=== PATIENT | female | born 1950 | race Caucasian/White ===

== ENCOUNTER 2018-12-14 08:41 | Day surgery (SDC) | payer MEDICARE ==
[~2018-12-14 08:41] MED LIST: Acetaminophen TAB* 325 MG PO PRN
[2018-12-14] MEDS ORDERED: Midazolam* 1 MG/ML 2 ML VIAL (2 MG) ONE ×2 (09:26→09:57)
[2018-12-14 10:23] VITALS: BP 123/67
[2018-12-14] MEDS ORDERED: Tetracaine 0.5% OPTH.SOL 4 ML* 1 DROP BTL ONE (10:58)
[2018-12-14] MEDS ORDERED: Phenylephrine 2.5% OPTH.SOL* 2 ML BTL ONE (10:58)
[2018-12-14] MEDS ORDERED: Ketorolac 0.5% OPHTH (NF) 0.5 % 5 ML BTL ONE (10:58)
[2018-12-14] MEDS ORDERED: Tropicamide 1% OPTH.SOL* BTL ONE (10:58)
[2018-12-14] MEDS ORDERED: Neomycin/Polymy/Dex OPHTH.OIN* 3.5 GM ONE (10:58)
[2018-12-14] MEDS ORDERED: Lidocaine 1%* 5 ML VIAL ONE (10:58)
[2018-12-14] MEDS ORDERED: Povidone Iodine 5% OPTH* 30 ML BTL ONE (10:58)
[2018-12-14] MEDS ORDERED: Cyclopentolate 1% OPTH.SOL* 2 ML BTL ONE (10:58)
[2018-12-14] MEDS ORDERED: acetaZOLAMIDE TAB* 250 MG ONE (10:58)
--- NOTE | 2018-12-14 12:51 | OP ---
DATE OF OPERATION: 12/14/18 [facility] DATE OF : 48 SURGEON: Ankit Deras MD. ANESTHESIA: Monitored anesthesia care. PRE-OP DIAGNOSIS: Cataract, right eye. POST-OP DIAGNOSIS: Cataract, right eye. OPERATIVE PROCEDURE: Extracapsular cataract extraction of the right eye with intraocular lens implant. IMPLANTS: SN60WF 16.5 diopter lens to the right eye. COMPLICATIONS: None. DESCRIPTION OF PROCEDURE: The patient was given phenylephrine 2.5 % and cyclopentolate 1% eye drops to the operative eye in the preoperative area. The patient was taken to the operating room where a time-out was taken to identify the correct patient, site, and side of surgery. The patient's right eye was prepped and draped in the usual sterile fashion with 5% Betadine. A second time- out was taken to verify the correct patient, side, and site of surgery, as well as the correct lens implant. A lid speculum was placed to the right eye. A 1mm paracentesis blade was used to make a clear corneal incision. Preservative-free 1% lidocaine was injected into the anterior chamber. DisCoVisc was then injected into the anterior chamber. A 2.75 mm keratome blade was used to make a triplanar incision. A cystotome initiated a capsulorrhexis, which was completed with Utrata forceps in a continuous and curvilinear manner. Hydrodissection of the lens was performed with BSS on a cannula. The lens could be spun in a capsular bag. The phacoemulsification handpiece was used with a divide-and- conquer technique to remove the nucleus. The I/A handpiece then removed the residual cortical lens material. DisCoVisc was injected to inflate the capsular bag. The planned SN60WF 16.5 Diopter lens was injected into the capsular bag. The residual DisCoVisc was removed from the eye with the I/A handpiece. The corneal incisions were hydrated and no leaks occurred at physiologic pressure around 20 mmHg per palpation. The lid speculum was removed and drapes were removed. Maxitrol ointment was placed to the surface of the operative eye. An adhesive patch and shield was then placed on the operative eye. The patient was taken to the postoperative area in stable condition. [id number]/[facility] #: [id number] [facility]
== END 2018-12-14 10:24 | disposition home or self-care (01) ==
LOC: OREAST 08:41
PROVIDERS: ATTEND Student in an Organized Health Care Education/Training Program
DX: H26.9 Unspecified cataract (principal); Z79.899 Other long term (current) drug therapy; I10 Essential (primary) hypertension; E78.49 Other hyperlipidemia; K21.9 Gastro-esophageal reflux disease without esophagitis
CPT/HCPCS: A9270-GY; J2250; V2632

== ENCOUNTER 2018-12-21 06:34 | Day surgery (SDC) | payer MEDICARE ==
[2018-12-21] MEDS ORDERED: Midazolam* 1 MG/ML 2 ML VIAL (2 MG) ONE ×2 (07:22→07:29)
[2018-12-21 08:03] VITALS: BP 140/76
--- NOTE | 2018-12-21 08:23 | OP ---
DATE OF OPERATION: 12/21/18 - [facility] DATE OF : 48 SURGEON: Ankit Deras MD ANESTHESIA: Monitored anesthesia care. PREOPERATIVE DIAGNOSIS: Cataract, left eye. POSTOPERATIVE DIAGNOSIS: Cataract, left eye. OPERATIVE PROCEDURE: Extracapsular cataract extraction of the left eye with intraocular lens implant. IMPLANT: SN60WF 18.5 diopter lens to the left eye. COMPLICATIONS: None. DESCRIPTION OF PROCEDURE: The patient was given phenylephrine 2.5% and cyclopentolate 1% eye drops to the operative eye in the preoperative area. The patient was taken to the operating room where a time-out was taken to identify the correct patient, site, and side of surgery. The patient's left eye was prepped and draped in the usual sterile fashion with 5% Betadine. A second time- out was taken to verify the correct patient, side, and site of surgery, as well as the correct lens implant. A lid speculum was placed to the left eye. A 1mm paracentesis blade was used to make a clear corneal incision. Preservative-free 1% lidocaine was injected into the anterior chamber. DisCoVisc was then injected into the anterior chamber. A 2.75 mm keratome blade was used to make a triplanar incision. A cystotome initiated a capsulorrhexis, which was completed with Utrata forceps in a continuous and curvilinear manner. Hydrodissection of the lens was performed with BSS on a cannula. The lens could be spun in a capsular bag. The phacoemulsification handpiece was used with a divide-and- conquer technique to remove the nucleus. The I/A handpiece then removed the residual cortical lens material. DisCoVisc was injected to inflate the capsular bag. The planned SN60WF 18.5 diopter lens was injected into the capsular bag. The residual DisCoVisc was removed from the eye with the I/A handpiece. The corneal incisions were hydrated and no leaks occurred at physiologic pressure around 20 mmHg per palpation. The lid speculum was removed and drapes were removed. Maxitrol ointment was placed to the surface of the operative eye. An adhesive patch and shield was then placed on the operative eye. The patient was taken to the postoperative area in stable condition. [id number]/[facility] #: [id number] [facility]
[2018-12-21] MEDS ORDERED: Tetracaine 0.5% OPTH.SOL 4 ML* 1 DROP BTL ONE (10:25)
[2018-12-21] MEDS ORDERED: Cyclopentolate 1% OPTH.SOL* 2 ML BTL ONE (10:25)
[2018-12-21] MEDS ORDERED: acetaZOLAMIDE TAB* 250 MG ONE (10:25)
[2018-12-21] MEDS ORDERED: Tropicamide 1% OPTH.SOL* BTL ONE (10:25)
[2018-12-21] MEDS ORDERED: Neomycin/Polymy/Dex OPHTH.OIN* 3.5 GM ONE (10:25)
[2018-12-21] MEDS ORDERED: Povidone Iodine 5% OPTH* 30 ML BTL ONE (10:25)
[2018-12-21] MEDS ORDERED: Ketorolac 0.5% OPHTH (NF) 0.5 % 5 ML BTL ONE (10:25)
[2018-12-21] MEDS ORDERED: Phenylephrine 2.5% OPTH.SOL* 2 ML BTL ONE (10:25)
[2018-12-21] MEDS ORDERED: Lidocaine 1%* 5 ML VIAL ONE (10:25)
== END 2018-12-21 08:10 | disposition home or self-care (01) ==
LOC: OREAST 06:34
PROVIDERS: ATTEND Student in an Organized Health Care Education/Training Program
DX: H25.12 Age-related nuclear cataract, left eye (principal); H43.813 Vitreous degeneration, bilateral; I10 Essential (primary) hypertension; J45.909 Unspecified asthma, uncomplicated; K21.9 Gastro-esophageal reflux disease without esophagitis; Z85.3 Personal history of malignant neoplasm of breast; M79.18 Myalgia, other site
CPT/HCPCS: A9270-GY; J2250; V2632

== ENCOUNTER 2019-04-01 09:52 | Day surgery (SDC) | payer MEDICARE ==
[~2019-04-01 09:52] MED LIST changes: -Acetaminophen TAB* 325 MG PO PRN; +Buffered Lidocaine 1% SYRIN* 1 ML/SYRINGE INTRADERM ONE; +Lactated Ringers 1000 ML Bag* 1,000 ML IV SCH
[2019-04-01] MEDS ORDERED: ceFAZolin 2 GM PREMIX in ORs 2 GM/50 ML BAG IVPB ONE (10:04)
[2019-04-01] MEDS ORDERED: Midazolam* 1 MG/ML 2 ML VIAL (2 MG) ONE ×2 (11:34→12:59)
[2019-04-01] MEDS ORDERED: fentaNYL* 50 MCG/ML 2 ML VIAL (100 MCG VIAL) ONE (11:34)
[2019-04-01] MEDS ORDERED: Bupivacaine 0.25% SDV* 30 ML ONE (11:58)
[2019-04-01] MEDS ORDERED: ROPIVACAINE 5 MG/ML 30 ML BTL (0.5%) ONE (12:07)
[2019-04-01] MEDS ORDERED: Propofol* 10 MG/ML 20 ML BTL ONE ×2 (12:59→13:47)
[2019-04-01] MEDS ORDERED: Lidocaine 2% PF * 5 ML VIAL ONE (12:59)
[2019-04-01] MEDS ORDERED: Ondansetron INJ* 2 MG/ML VIAL IV PRN (13:10)
[2019-04-01] MEDS ORDERED: Naloxone* 0.4 MG/ML 1 ML VIAL IV PRN (13:10)
[2019-04-01 15:04] VITALS: BP 123/54
--- NOTE | 2019-04-01 23:49 | OP ---
OPERATIVE REPORT: DATE OF OPERATION: 04/01/19 - [facility] DATE OF : 48 SURGEON: Rubens Calles MD PANTRY STEWARD/STEWARDESS: STEVEN Peralta An certified nursing assistant was needed for the entirety of the procedure to aid in position of the arm and retraction. ANESTHESIOLOGIST: Dr. Glez. ANESTHESIA: Peripheral nerve block with MAC. PRE-OP DIAGNOSIS: Left stage 3 basal joint arthritis. 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 OPERATIVE PROCEDURE: 1. Left thumb carpometacarpal arthroplasty with trapeziectomy and thumb suspension via Arthrex Mini TightRope device. 2. Left partial trapezoidectomy. 3. Left distally based split flexor carpi radialis tendon transfer for tendon interposition at the site of the partial trapezoidectomy. INDICATIONS: Ayla has significant thumb base arthritis. It caused her quite a bit of pain and discomfort. I talked to her about her treatment options. She had wanted to proceed with surgery to see if she could get relief from the debilitating thumb base pain. She understands the risks and benefits associated with surgery and she wanted to proceed. ESTIMATED BLOOD LOSS: 5 mL. COMPLICATIONS: None. FINDINGS: See and below. DESCRIPTION OF PROCEDURE: Ayla was seen in the preoperative holding area. The correct side, site, and procedure were identified. We came back to the operating room and the arm was prepped and draped in the usual fashion and a time-out was performed. The arm was exsanguinated with the Esmarch and the tourniquet was inflated to 250 mmHg. I made a 2 to 3 cm incision over the dorsal radial thumb base. Dissection was carried down longitudinally, preserved the traversing sensory nerves. The radial artery was dissected free, mobilized, and retracted out of the way. I then raised subperiosteal and capsular flaps to expose the entirety of the trapezium. This was then excised in piecemeal fashion with rongeur in its entirety. After the trapeziectomy had been performed, I noted that the distal pole of the scaphoid was completely devoid of articular cartilage both at the scaphotrapezial joint as well as in the scaphotrapezoid joint. I went ahead therefore and took the osteotome and excised the proximal 3 to 4 mm of trapezoid. This came out cleanly in 1 piece. I ensured there were no remnants remaining. After the partial trapezoidectomy had been performed, I went ahead and made a 1 cm incision over the dorsal ulnar aspect of the second metacarpal base. Sensory nerve was retracted out of the way. I released a little bit of the muscle there subperiosteally. I then placed my K-wire guide in the appropriate location and then passed a K-wire from the base of the thumb metacarpal up to the dorsal ulnar aspect of the second metacarpal base. The FiberWire suture was passed up through the drill hole. I then retrieved the 2 tails off my EndoButton and placed the first EndoButton on the dorsal ulnar aspect of the second metacarpal base. The suture tails were pulled out through the first metacarpal base and placed a second EndoButton there, placed it on the bone in slightly appropriate tension and then tying it off. After one knot, I checked the tension. It was very nice, somewhat suspended very nicely. I therefore tied off and secured the stitch. Lastly, I did need something to place at the side of my partial trapezoidectomy. I went ahead and made a 1 cm incision just proximal to the wrist flexion crease. The FCR tendon sheath was opened up. The FCR tendon was brought up. It was split longitudinally with 15 blade and then a 26-gauge wire was passed in the split. Through 2 sequentially more proximal incisions, I released the remainder of the FCR tendon sheath and then pulled the 26-gauge wire under the skin up into the proximal wound, releasing half of the tendon at the musculotendinous junction. The 26-gauge wires were then used to shuttle the split end of the tendon down into the thumb base wound. The tendon split was taken all the way down to the base of the second metacarpal. I went ahead and made a nice suture mat with that split end of the tendon, wrapping the tendon over multiple times and securing it all with 4-0 Ethibond suture. A tendon mat was then placed as an interposition between the distal pole of the scaphoid and the proximal aspect of what remained of the trapezoid. At this point, everything was looking good. I irrigated out the wound. The capsule was closed with 3-0 Vicryl suture. The radial artery was protected during the capsular closure. Skin was closed with 4-0 nylon suture. 0.25% Marcaine was infiltrated around the operative area. Wounds were dressed and a thumb spica splint was placed. She was taken to the recovery room in stable condition. [id number]/[facility] #: [id number] [facility]
== END 2019-04-01 12:41 | disposition home or self-care (01) ==
LOC: OREAST 09:52
PROVIDERS: ATTEND Orthopaedic Surgery Hand Surgery
DX: M18.12 Unilateral primary osteoarthritis of first carpometacarpal joint, left hand (principal); I10 Essential (primary) hypertension; E78.5 Hyperlipidemia, unspecified; J45.909 Unspecified asthma, uncomplicated; M19.90 Unspecified osteoarthritis, unspecified site; K21.9 Gastro-esophageal reflux disease without esophagitis; G89.18 Other acute postprocedural pain
CPT/HCPCS: 76000; 88304; 88311; C1776; J0690; J2250; J2704; J2795; J3010; J3490